=== PATIENT | female | born 1985 | race Caucasian/White ===

== ENCOUNTER 2017-05-25 12:32 | Emergency (ER) | payer MEDICAID, OTHER ==
[~2017-05-25] VITALS: Ht 170.2 cm; Wt 52.3 kg
[2017-05-25 12:45] VITALS: BP 123/81; PULSE 80; RESP 18; O2SAT 99
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
[2017-05-25 14:26] LABS: BASOPHILS % (AUTO) 0.8 % (0-3); EOSINOPHILS % (AUTO) 1.1 % (0-5); MONOCYTES % (AUTO) 6.2 % (4-12); Mean Corpuscular Hemoglobin 29.1 pg (27.0-35.0); Mean Corpuscular Volume 88.6 fL (81-100); NEUTROPHILS % (AUTO) 55.1 % (40-74); Platelet Count 322 bil/L (150-400)
[2017-05-25] MEDS ORDERED: HYDR-656 PO (21:30)
[2017-05-25] MEDS ORDERED: hydrOXYzine Pamoate 25 mg Capsule PO ONE (21:35)
[2017-05-25 22:09] VITALS: BP 123/91; PULSE 78; RESP 18; O2SAT 99
[2017-05-25 22:11] VITALS: BP 123/91; PULSE 78; RESP 18; O2SAT 99
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
== END 2017-05-25 22:12 | disposition home or self-care (01) ==
LOC: SED 12:32
DX: F32.9 Major depressive disorder, single episode, unspecified (principal); Z88.5 Allergy status to narcotic agent
CPT/HCPCS: 36415; 80053; 81002; 81025; 82075; 84443; 85025; 99284; Q0177

== ENCOUNTER 2017-06-22 12:52 | Inpatient (IN) | payer MEDICAID, OTHER ==
[~2017-06-22] VITALS: Ht 170.2 cm; Wt 63.6 kg
[~2017-06-22 12:52] MED LIST: HYDR-656 PO
[2017-06-22 13:00] VITALS: BP 111/79; PULSE 90; RESP 10; O2SAT 97
[2017-06-22 13:49] LABS: BASOPHILS % (AUTO) 0.4 % (0-3); EOSINOPHILS % (AUTO) 0.4 % (0-5); Mean Corpuscular Hemoglobin 29.7 pg (27.0-35.0); NEUTROPHILS % (AUTO) 77.1 % (40-74); Platelet Count 300 bil/L (150-400)
--- NOTE | 2017-06-22 15:33 | ED.REPORT ---
HPI-Psychiatric Illness Date of Service Jun 22, 2017 ED Provider: Thierry Hugo PA-C Torsten is a 30-year-old female with a history of depression who presents emergency Department with chief complaint of suicidal ideation. Patient reports reduced activity, poor appetite, difficulty leaving her apartment and thoughts of jumping off a bridge for the last month, worsening over the last 2 weeks. Recently placed on lithium by her PCP, also taking gabapentin. States "I just don't think I can do this on my own anymore" and feels a admission may be beneficial to her. Admitted history of alcoholism but denies recent use. Admits marijuana use, denies other drugs. Hospitalized at in February. Reports a history of suicide attempts through pill ingestion, an attempt to jump off a bridge that was stopped by family members. She denies physical complaints. Nursing Notes Stated Complaint: SUICIDAL Chief Complaint: Psychiatric Complaint Nursing Notes Reviewed: Yes Allergies: Coded Allergies: morphine (Verified Allergy, Unknown, itchy hives, 05/25/17) Scheduled PRN hydrOXYzine Hcl (HydrOXYzine Hcl) 25 Mg Tablet 25-50 MG PO HS PRN PRN For Insomnia General Time Seen by MD: 13:16 Chief Complaint Suicidal ideation Risk-Psychiatric Illness Suicide Risk Stratification Suicide Risk Factors - Adult: : Previous attempt: Prior psych admissionNo: Alcohol use, Substance abuse RF Statements: Risk factors reviewed Past Medical History Past Medical History Denies Review of Systems General: Denies fever, chills, malaise. HEENT: Denies congestion, headache, sore throat. Respiratory: Denies dyspnea, cough, shortness of breath, wheezing. Cardiovascular: Denies chest pain, palpitations. Gastrointestinal: Denies vomiting, diarrhea, abdominal pain. Genitourinary: Denies frequency, urgency, dysuria, hematuria. Denies vaginal bleeding/discharge. Otherwise as noted in HPI. Physical Exam General: Well appearing, well developed, well nourished, no acute distress. Head: Atraumatic, normocephalic. No mastoid tenderness. Eyes: No scleral icterus or injection. No discharge. PERRL. Vision grossly intact. Ears: Pinna and tragus nontender with manipulation. External auditory canal patent, atraumatic and without discharge. Tympanic membrane pineda, shiny and translucent without fluid, bulging, retraction or perforation. Hearing grossly intact. Nose: Symmetrical, nares patent without discharge. No frontal or maxillary sinus tenderness. Mouth/pharynx: normal dentition, mucus membranes moist. Tonsils 2+ and symmetrical, uvula midline. Pharynx noninjected, no cobblestoning or discharge. Voice clear. Neck: No tenderness or lymphadenopathy. Trachea midline. . Respiratory: Regular rate and rhythm. Breath sounds present, clear to auscultation and equal bilaterally. No respiratory distress. No increased work of breathing, speaks in complete sentences. Cardiovascular: Regular rate and rhythm, without murmur, gallop or rub. No pedal edema. Gastrointestinal: Abdomen flat and non-tender without guarding or rebound. Bowel sounds normoactive. Skin: Warm and dry. Back: Normal to inspection, negative CVA tenderness. Neurological: Grossly nonfocal. Cranial nerves: Vision grossly intact, PERRL, EOMI. Facial motion symmetrical, sensation to light touch over forehead, maxilla and mandible present and equal B /L. Voice clear and fluent, no drooling/pooling of saliva, uvula rises midline. Psychological: Alert and oriented. Speech appropriate, linear and logical. Behavior appropriate. Initial Vital Signs Vital Signs (First) Date Time Temp Pulse Resp B/P Pulse Ox O2 Delivery O2 Flow Rate FiO2 06/22/17 13:00 36.6 90 10 111/79 97 Room Air Normal Interpretation & Diagnostics Lab Results Interpretation Result Diagram: 06/22/17 1335 06/22/17 1335 Test 06/22/17 13:20 06/22/17 13:33 06/22/17 13:35 Hold Urine Received (Received) Hold Stewart Top Tube Received (Received) White Blood Count 8.1th/mm3 (3.8-10.1) Red Blood Count 4.38mil/mm3 (3.90-5.20) Hemoglobin 13.0g/dL (12.0-15.6) Hematocrit 39.0% (35.0-46.0) Mean Corpuscular Volume 89.0fL (81-100) Mean Corpuscular Hemoglobin 29.7pg (27.0-35.0) Mean Corpuscular Hemoglobin Concent 33.3% (32.0-37.0) Red Cell Distribution Width 13.6% (12.3-15.4) Platelet Count 300bil/L (150-400) Neutrophils (%) (Auto) 77.1% (40-74) Lymphocytes (%) (Auto) 16.0% (14-46) Monocytes (%) (Auto) 6.0% (4-12) Eosinophils (%) (Auto) 0.4% (0-5) Basophils (%) (Auto) 0.4% (0-3) Sodium Level 135mEq/L (134-144) Potassium Level 4.3mEq/L (3.5-5.2) Chloride Level 97mEq/L (97-108) Carbon Dioxide Level 24mmol/L (18-29) Blood Urea Nitrogen 11mg/dL (6-20) Creatinine 0.74mg/dL (0.57-1.00) Estimat Glomerular Filtration Rate 129mL/min (>59) Glucose Level 112mg/dL (60-99) Calcium Level 9.5mg/dL (8.5-10.1) Total Bilirubin 0.5mg/dL (0.0-1.2) Aspartate Amino Transf (AST/SGOT) 13U/L (0-50) Alanine Aminotransferase (ALT/SGPT) 11U/L (0-32) Alkaline Phosphatase 69U/L (25-150) Total Protein 7.4g/dL (6.4-8.4) Albumin 4.5g/dL (3.4-5.0) Thyroid Stimulating Hormone (TSH) 0.590uIU/mL (0.450-4.500) Catlett Level 0.2mEq/L (0.5-1.5) Re-Eval/Medical Decision Med Decision/Clinical Course 31-year-old female presents to department with a chief complaint of suicidal ideation. Reports slow deterioration over the last month, worsening last 2 weeks. Reports reduced appetite, difficulty leaving the house, thoughts of jumping off a bridge. She no longer feels able to cope with her depression on her own and is seeking admission. Denies physical complaints. Physical examination is benign, normal vital signs. CBC and CMP are unremarkable. Catlett is low at 0.2. TSH is normal. Urine tox is positive for an expected marijuana. Breathalyzer is 0. is negative. I discussed the case with MADELEINE Lucio who met with and examined the patient. She feels this patient has been declining steadily since she was last seen in this department and admission is justifiable. She is seeking admission. Care is transferred to Dr. Sweeney at shift change. Discharge & Departure Shift Change Sign-Out Patient Care Transferred: Yes (Dr. Sweeney) Discussed Complaint(s): Yes Laboratory Evaluation: Lab evaluation discussed Impression: Primary Impression: Suicidal ideation Referrals: Vita Hathaway (PCP) EDSupervising Provider for APC: Jeffery Ramos Seth PA-C Jun 22, 2017 15:33
[2017-06-22 19:27] VITALS: BP 106/51; PULSE 63; O2SAT 97
[2017-06-23] MEDS ORDERED: Zolpidem 5 mg Tablet for FEMALE or >65YO PO PRN (00:50)
[2017-06-23] MEDS ORDERED: Alum-Mag Hydrox-Simeth 30 mL Suspension PO PRN (00:50)
[2017-06-23] MEDS ORDERED: Magnesium Hydroxide 10 mL Oral Concentration PO PRN (00:50)
[2017-06-23] MEDS ORDERED: LORazepam 1 mg Tablet PO PRN (00:50)
[2017-06-23] MEDS ORDERED: Benzocaine-Menthol Lozenge 2/Pkg PO PRN (00:50)
--- NOTE | 2017-06-23 02:49 | NUR ---
Admission Note This is a 31-year-old voluntary female who presented to [facility] ED with complaints of suicidal ideation and a plan to jump from a bridge. Patient reports worsening severe depression over the last two weeks, after her PCP started her on [place]. Patient reports hypersomnolence, increased isolation to home, low energy, low motivation and decreased ADLs. She has a hard time getting herself to work, therapy appointments and AA meetings. Patient also reports that she hasn't been to any of the recent visitations with her daughter due to feeling "too overwhelmed" to leave her home and increased depression. She has three previous psychiatric hospitalizations, most recent to [facility] this past December. She is currently in outpatient treatment with [facility]. Patient denies HI, A/V hallucinations. Patient has history of asthma, ADHD, and depression. Medications include [place] 300 mg BID and Gabapentin 600 mg BID. Was taking Adderall 10 mg BID, but this med was stopped 2 weeks ago when [place] was started. Patient is AOx3, VS-WNL, allergies recorded, ht-5' 7"; wt-140 lbs. Patient arrived on this unit at 0045 and presented as pleasant, calm and cooperative. Completed the admission process, agreed to no self-harm, briefly oriented to the unit, changed clothes and went to bed. Was noted to be asleep after 0200 during q15 minute assessments. Patient has [employer] insurance.
--- NOTE | 2017-06-23 11:10 | NUR ---
Nursing Days Pt denies suicidal thoughts but states "I feel like I am already . I feel hopeless. I haven't trusted people and now they don't trust me. I am feeling anxious about my job. It is a new job and I am afraid I will lose it because I am here." Pt encouraged to speak with the doctor to request a note for her employer. She was offered and accepted Vistaril 50mg po prn for felt anxiety. She stated "I do not want any Benzo's". She was awake this morning, took her scheduled medication and visible on the unit. Currently she plans to take a short nap prior to lunch.
[2017-06-23 13:57] VITALS: BP 119/80; PULSE 99; RESP 18
--- NOTE | 2017-06-23 18:32 | NUR ---
Collateral Analyst/Counselor: S:"I think I should be ready to discharge tomorrow." O: Patient slept 4 hours last night per staff. Patient denies S/I and H/I. She also denies auditory and visual hallucinations. Depression and anxiety were not rated. A: Patient is cooperative, anxious, depressed, fair insight, fair judgment. P: Follow the care plan, coordinate with out-patient providers.
--- NOTE | 2017-06-23 18:46 | NUR ---
[facility] Day Shift Pt maintained behavioral control throughout the shift. Pt affect appears flat, sad. Pt has spent the majority of the shift resting in her room, only entering the dining room to attend meals. Pt is not social with staff or peers when active on the shift, but is not unpleasant when engaged. Pt attended community meeting, but did not attend group activities throughout the shift. Pt attended all meals and ate approx 90% of all meals.
--- NOTE | 2017-06-24 04:50 | NUR ---
nursing, nights, 11-7 s/o- has appeared to sleep after 2244 during q 15 minute assessments. a- no apparent distress. p- monitor behavior/emotional state, quality, times and amount of sleep, use and effect of medication. enrike
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
--- NOTE | 2017-06-24 10:18 | NUR ---
Nursing: Pt is preparing for discharge, doing care plan paperwork. Is going back to transitional housing in [facility] and looks forward to it. She talks about the frustration of being in recovery and on green medicine, related to other's understanding, and that this has actually helped her with not trying to self-medicate with other things. She is calm, compliant with and understands her meds. Belongings/valuables reviewed with pt as well as all discharge paperwork. Addendum: 06/24/17 at 1306 by JOHN OG RN Pt discharged @ 1305 w/ all belongings, appointments and instructions
[2017-06-24 11:07] VITALS: BP 112/78; PULSE 85; RESP 16
--- NOTE | 2017-06-24 11:43 | PCM.DIMED ---
Discharge Instructions Date of Service Jun 24, 2017 Dates of Hospitalization Jun 23, 2017 at 00:27 Discharge Diagnosis Discharge Diagnosis Mood DO NOS Panic DO without agaoraphobia Borderline Personality Diet Discharge Diet: No restrictions Activity Discharge Activity: No restrictions Jorge Pierson DO Jun 24, 2017 11:43
[2017-06-24] MEDS ORDERED: GABA300C PO (11:44)
--- NOTE | 2017-06-24 18:47 | NUR ---
Oncology Social Work/Counselor: S:"I'm looking forward to going home." O: Patient slept 7.25 hours last night per staff. Patient denies S/I and H/I. She also denies auditory and visual hallucinations. Depression and anxiety were not rated. Out-patient appointment: Kaity Gordillo, counselor at [facility], 06/27/17 at 9:00am. A: Patient is cooperative, hopeful, good insight, fair judgment. P: Follow the care plan, coordinate with out-patient providers.
--- NOTE | 2017-06-24 22:01 | DIS ---
[address] [address] DISCHARGE SUMMARY PATIENT: JANES JARVIS : 1985 MR#: [id number] ADMIT: 06/23/2017 JOB ID: [id number] DIS: 06/24/2017 ADMITTING DIAGNOSES: Include: [place] I. 1. Mood disorder, not otherwise specified. 2. Major depressive disorder, recurrent type, nonpsychotic. 3. Posttraumatic stress disorder, chronic. 4. Attention deficit hyperactivity disorder, predominantly inattentive type by history. [place] II. Cluster B personality features. [place] III. None. [place] IV. Stressors noted for loss of relationship, transition of employment, loss of child. [place] V. Global Assessment of Functioning current 35. DISCHARGE DIAGNOSES: Include: [place] I. 1. Mood disorder, not otherwise specified. 2. Posttraumatic stress disorder, chronic. 3. Attention deficit, hyperactivity disorder, predominantly inattentive type by history. [place] II. Borderline personality disorder. [place] III. None. Kat[place] IV. Stressors are noted for loss of relationship, transition of employment, loss of child. [place] V. Global Assessment of Functioning current 40. REASON FOR ADMISSION: Patient was a 31-year-old female, admitted through the emergency department on a voluntary basis with evidence of increasing depression, mood instability, suicidal ideation with a plan of jumping off a bridge. During hospital course, patient showed significant stabilization with open identification that she believes that she had a negative reaction to lithium which had been instituted within the past several weeks. During the course of hospitalization, her previous history was reviewed by myself, with previous identification of several hospitalizations to [facility], [facility] in [place] and [facility] in [place]. She in addition identified previous trials of medications including Prozac, Effexor. Klonopin, Wellbutrin, Seroquel, Lexapro and Neurontin. She reportedly identified that she had been prescribed doses of Adderall in the past for treatment of ADD but recently felt that the Adderall was only causing increasing difficulties with her anxiety. During course of hospitalization, patient agreed to titrate her doses of Neurontin to 900 mg t.i.d. and showed significant beneficial response. She indicated that she had discontinued the lithium and felt that it was an inappropriate medication. I have suggested to return back to her outpatient therapist, Nahomi Mendez, for continuation of therapeutic interventions including possible access of DBT therapies due to characteristic features of borderline personality. In addition, the patient was recommended to continue with her medication management of Neurontin. MENTAL STATUS EXAM: The patient was bright, cooperative, interactive. She denied any evidence of acute distress. Her speech was of normal tone, frequency, and volume. Her mood was neutral. Affect was congruent. Her thought process showed no evidence of racing thoughts, flight of ideas, loose or disconnected thinking. Thought content: She denied any evidence of current suicidal, homicidal ideation. No evidence of active hallucinations, delusions. No evidence of paranoia. She was alert, oriented to time and place. Attention and concentration intact. Insight and judgment are fair. DISCHARGE PLANS: Include. 1. Follow up with [facility], outpatient therapist, Nahomi Mendez. fair charge on 06/27 at 9 a.m. 2. Continuation of medications including Neurontin 900 mg t.i.d., one month supply, no refills. 3. Recommendations for continuation of Vistaril 50 mg t.i.d. p.r.n., one-month supply, no refills. Reason for usage: Anxiolytic.
== END 2017-06-24 19:31 | disposition home or self-care (01) | DRG 885 ==
LOC: SED 12:52 → MHC 06-23 00:27
PROVIDERS: ADMIT Psychiatry & Neurology Psychiatry; ATTEND Psychiatry & Neurology Psychiatry
DX: F39 Unspecified mood [affective] disorder (principal); R45.851 Suicidal ideations; Z91.5 Personal history of self-harm; F43.12 Post-traumatic stress disorder, chronic; F90.0 Attention-deficit hyperactivity disorder, predominantly inattentive type; Z63.0 Problems in relationship with spouse or partner; Z65.3 Problems related to other legal circumstances